=== PATIENT | male | born 1980 | race Caucasian/White ===

== ENCOUNTER 2016-08-07 23:57 | Emergency (ER) | payer OTHER ==
--- NOTE | 2016-08-08 00:17 | PDOC ---
History of Present Illness - General History Source: Patient, Old Records Exam Limitations: No Limitations - History of Present Illness Initial Comments: 08/08/16 00:55 The patient is a 35 year old male, with a significant past medical history of hypertension, gastritis, alcohol abuse and drug abuse, who presents to the emergency department with left sided facial numbness/weakness and left sided headache for the past 5 days. The patient states that 5 days ago he woke up with these symptoms. The patient states that he was seen in the ED at [facility] a couple days ago, was diagnosed with Urrutia's Palsy and was discharged home on medications (steroids/valtrex/antibiotics), which the patient states he has been compliant with. The patient reports slight improvement of symptoms but presents today for evaluation and a second opinion. The patient additionally reports some mild epigastric discomfort, which he describes as a burning sensation and states feels similar to his gastritis. The patient denies fever, chills, nausea, vomiting, diarrhea or any dysuria. The patient reports that his most recent alcohol consumption was 8 days ago and his most recent cocaine use was approximately 2 weeks ago. Allergies: None reported. Past Surgical History: None reported. Social History: Current smoker (5 cigarettes/day). Reports alcohol, marijuana and cocaine use. PCP: Dr. Susan Burnett <Hailey Cintron - Last Filed: 08/08/16 01:27> <Arvin Herndon - Last Filed: 08/08/16 01:56> - General Chief Complaint: Head/Neck problem Stated Complaint: NUMBNESS Time Seen by Provider: 08/08/16 00:11 Past History <Hailey Cintron - Last Filed: 08/08/16 01:27> - Psycho/Social/Smoking Cessation Hx Suicidal Ideation: No Smoking History: Current some day smoker Have you smoked in the past 12 months: No Number of Cigarettes Smoked Daily: 5 Information on smoking cessation initiated: No 'Breaking Loose' booklet given: 10/01/15 Hx Alcohol Use: Yes (SOCIAL) Drug/Substance Use Hx: No Substance Use Type: Marijuana Hx Substance Use Treatment: No <Arvin Herndon - Last Filed: 08/08/16 01:56> - Past Medical History Allergies/Adverse Reactions: Allergies Allergy/AdvReac Type Severity Reaction Status Date / Time No Known Allergies Allergy Verified 11/27/15 10:29 Home Medications: Ambulatory Orders Prednisone [Deltasone -] 20 mg PO TID 08/08/16 Review of Systems - Review of Systems Constitutional: No: Chills, Fever HEENTM: No: Recent change in vision Respiratory: No: Cough, Shortness of Breath Cardiac (ROS): Yes: Chest Pain. No: Edema, Lightheadedness, Syncope ABD/GI: No: Diarrhea, Vomiting Integumentary: Yes: See HPI All Other Systems: Reviewed and Negative <Arvin Herndon - Last Filed: 08/08/16 01:56> *Physical Exam - Vital Signs Last Vital Signs Temp Pulse Resp BP Pulse Ox 97.3 F L 66 17 144/99 99 08/08/16 00:11 08/08/16 00:11 08/08/16 00:11 08/08/16 00:11 08/08/16 00:11 - Physical Exam Comments: 08/08/16 00:32 GENERAL: The patient is awake, alert, and fully oriented, in no acute distress. HEAD: Normal with no signs of trauma. EYES: Pupils equal, round and reactive to light, extraocular movements intact, sclera anicteric, conjunctiva clear with no pallor. ENT: Ears normal, nares patent, oropharynx clear without exudates. Moist mucous membranes. NECK: Normal range of motion, supple without lymphadenopathy, JVD, or masses. LUNGS: Breath sounds equal, clear to auscultation bilaterally. No wheeze/ crackles. HEART: Regular rate and rhythm, normal S1 and S2 without murmur or rub. ABDOMEN: Soft/nontender/nondistended. BS wnl. No guarding or rebound. No palpable masses. No hepatosplenomegaly. EXTREMITIES: Normal range of motion, no edema. No clubbing or cyanosis. No cords, erythema, or tenderness. NEUROLOGICAL: Mental status: The patient is alert and oriented x3. Cranial nerves: Slight asymmetry of the left side. Slight left sided facial droop at rest but corrects almost completely with movement of the face. Remaining cranial nerves are intact. Motor: The upper extremities are 5 over 5 in all muscle groups. The lower extremities are 5 over 5 in all muscle groups. No pronator drift. Sensation: Sensation is intact to light touch throughout. Cerebellar: Frbmop-hpftel-uwvk is normal in both upper extremities. Heel-knee- young is normal in both lower extremities. Reflexes: 2+ and symmetric in the upper and lower extremities. Gait: Normal. Heel and toe walking are normal. Tandem gait is normal. PSYCH: Normal mood, normal affect. SKIN: Warm, dry, normal turgor, no rashes or lesions noted. <Hailey Cintron - Last Filed: 08/08/16 01:27> - Vital Signs Last Vital Signs Temp Pulse Resp BP Pulse Ox 97.3 F L 66 17 144/99 99 08/08/16 00:11 08/08/16 00:11 08/08/16 00:11 08/08/16 00:11 08/08/16 00:11 <Arvin Herndon - Last Filed: 08/08/16 01:56> Heart Score/ECG Review #1 ECG reviewed & interpreted by me at: 00:09 General ECG Interpretation: Sinus Rhythm, Normal Rate (66), Normal Intervals ( qtc 389), No acute ischemic changes <Arvin Herndon - Last Filed: 08/08/16 01:56> ED Treatment Course - LABORATORY CBC & Chemistry Diagram: 08/08/16 00:36 08/08/16 00:36 <Hailey Cintron - Last Filed: 08/08/16 01:27> - LABORATORY CBC & Chemistry Diagram: 08/08/16 00:36 08/08/16 00:36 <Arvin Herndon - Last Filed: 08/08/16 01:56> Medical Decision Making - Medical Decision Making 08/08/16 01:27 EXAM: CT BRAIN W/O CONTR Reviewed By: Dr. Kyler Burgess IMPRESSION: The suspected infarct is not visible on CT at this time. No bleed. No mass. No shift or herniation. No hydrocephalus. Advanced mucosal thickening in the maxillary sinuses. <Hailey Cintron - Last Filed: 08/08/16 01:27> - Medical Decision Making 08/08/16 00:43 A portion of this note was documented by scribe services under my direction. I have reviewed the details of the note, within reason, and agree with the documentation with the following case summary and management plan written by me. 35-year-old male with history of hypertension and alcohol and drug abuse (last cocaine use about 2 weeks ago) presents for second opinion for recently diagnosed left facial Urrutia's palsy. Patient's last EtOH intake was 8 days ago, about 5 days ago he awoke with left facial numbness and weakness. He went to the emergency department at [facility], was diagnosed with Urrutia's palsy and started on steroids/Valtrex/antibiotic with slight improvement, but he presents today for second opinion and for further evaluation of left facial numbness, left-sided headache, and acute on chronic epigastric burning/pain. Vital signs normal. 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 Given his polysubstance abuse and hypertensive history, will rule out other intracranial abnormality such as bleed or stroke. Clinically, this is much less likely. CT Head Epigastric discomfort is most consistent with his already diagnosed gastritis, less likely cardiac in nature despite some of his risk factors. Gastritis likely exacerbated by etoh intake and now steroids. EKG is normal. Will check troponin and lipase Reassess and dispo 08/08/16 01:11 White count 13.5, expected given the patient has been on prednisone for a week. CT head read as no acute pathology. Awaiting chemistries, will discharge if within normal limits. 08/08/16 01:32 Chemistries normal, troponin and lipase negative. Can be discharged home, continue steroids and Valtrex as previously prescribed, understands return criteria. <Arvin Herndon - Last Filed: 08/08/16 01:56> *DC/Admit/Observation/Transfer - Attestations Scribe Attestion: 08/08/16 00:17 Documentation prepared by Hailey Cintron, acting as medical education coordinator for Arvin Herndon MD. <Hailey Cintron - Last Filed: 08/08/16 01:27> <Arvin Herndon - Last Filed: 08/08/16 01:56> Diagnosis at time of Disposition: Urrutia's palsy, Epigastric abdominal pain - Discharge Dispostion Disposition: HOME Condition at time of disposition: Stable - Referrals Referrals: Susan Burnett [Primary Care Provider] - - Patient Instructions Printed Discharge Instructions: DI for Urrutia's Palsy Additional Instructions: Activity as tolerated. Stay hydrated. Tylenol 1000 mg every 8 hours and/or ibuprofen 600 mg every 8 hours as needed for pain. Avoid dairy, spicy or fatty food, caffeine, alcohol, and drugs. Blood tests, an EKG, and a CAT scan of the head showed no acute abnormalities. Your symptoms are most likely due to Urrutia's palsy, continue the steroids and Valtrex that were previously prescribed. Take over the counter Pepcid or Zantac for your stomach pain. You can also take Maalox or Tums. Continue your medications as previously prescribed by your physician. You should follow up with your primary doctor and a neurologist as soon as possible regarding today's emergency department visit. You should also see the [facility] as scheduled for your endoscopy. Return to the emergency department for any new or concerning symptoms, particularly severe headache, vision changes or confusion, worsening weakness, worsening chest pain or difficulty breathing, vomiting blood.
[2016-08-08 00:21] VITALS: BMI 26.1
[2016-08-08 00:51] LABS: BASOPHIL 0.2 % (0-2.0); MCH 26.1 pg (25.7-33.7); MCHC 32.9 g/dl (32.0-35.9); MEAN CELL VOLUME 79.4 fl (80-96); MEAN PLT VOLUME 8.4 fl (7.5-11.1); NEUTROPHILS 82.3 % (42.8-82.8); PLATELET COUNT 237 K/MM3 (134-434); RDW 13.1 % (11.9-15.9); WHITE BLOOD COUNT 13.5 K/mm3 (4.0-10.0)
[2016-08-08 01:17] LABS: ALBUMIN 4.3 g/dl (3.4-5.0); ANION GAP 9 (8-16); BILIRUBIN,TOTAL 0.4 mg/dL (0.2-1.0); CALCIUM 9.1 mg/dL (8.5-10.1); CO2 30 mmol/L (21-32); CREATININE 0.9 mg/dL (0.7-1.3); GLUCOSE,RANDOM 111 mg/dL (74-106); MAGNESIUM 2.1 mg/dL (1.8-2.4); SGOT/AST 9 U/L (15-37); SGPT/ALT 57 U/L (12-78); TOT PROT 7.5 g/dl (6.4-8.2)
[2016-08-08 01:20] LABS: ALK PHOS 63 U/L (45-117); TROPONIN I < 0.02 ng/ml (0.00-0.05)
[2016-08-08 02:03] VITALS: PULSE 86
[2016-08-08 02:04] VITALS: BP 135/89; TEMP 98.2
--- NOTE | 2016-08-08 19:57 | EKG ---
Test Reason : Blood Pressure : / mmHG Vent. Rate : 066 BPM Atrial Rate : 066 BPM P-R Int : 152 ms QRS Dur : 100 ms QT Int : 372 ms P-R-T Axes : 064 057 028 degrees QTc Int : 389 ms NORMAL SINUS RHYTHM NORMAL ECG WHEN COMPARED WITH ECG OF 27-NOV-2015 10:29, NO SIGNIFICANT CHANGE WAS FOUND Confirmed by TOMMIE PEARCE MD ([id number]) on 08/08/2016 7:57:34 PM Referred By: Confirmed By:TOMMIE PEARCE MD
== END 2016-08-08 02:00 | disposition home or self-care (01) ==
LOC: JER 23:57
DX: G51.0 Bell's palsy (principal); R10.13 Epigastric pain; F17.210 Nicotine dependence, cigarettes, uncomplicated; I10 Essential (primary) hypertension
CPT/HCPCS: 36415; 70450-TC; 80053; 82550; 83690; 83735; 84484; 85025; 93005; 93010; 99283-25